=== PATIENT | female | born 2000 | race Caucasian/White ===

== ENCOUNTER 2025-07-15 16:06 | Emergency (ER) | payer SELFPAY ==
[2025-07-15] MEDS: Lidocaine 2% Viscous Solution 15 ML UD PO ONE (17:08)
[2025-07-15 17:29] LABS: CANDIDA DNA PROBE NEGATIVE (NEGATIVE); GARDNERELLA DNA PROBE POSITIVE (NEGATIVE); TRICHOMONAS DNA PROBE NEGATIVE (NEGATIVE)
[2025-07-15 18:16] LABS: C. TRACHOMATIS BY PCR NOT DETECTED; N. GONORRHOEAE BY PCR NOT DETECTED
[2025-07-19 06:02] LABS: HSV SUBTYPE SOURCE Serum; HSV1 SUBTYPE BY PCR Not Detected; HSV2 SUBTYPE BY PCR Not Detected
== END 2025-07-15 18:36 | disposition home or self-care (01) ==
LOC: MW.ED 16:06
DX: N76.0 Acute vaginitis (principal); B96.89 Other specified bacterial agents as the cause of diseases classified elsewhere
CPT/HCPCS: 86592; 87389; 87480; 87491; 87510; 87529; 87591; 87660; 96372; 99283; A9270; J0696; J2003; J3490; J8540